=== PATIENT | male | born 1955 | race Caucasian/White ===

== ENCOUNTER → 2017-11-24 | Outpatient (CLI) | payer MEDICARE, OTHER ==
--- NOTE | 2017-11-24 17:42 | CT ---
EXAMINATION TYPE: CT lumbar spine wo con DATE OF EXAM: 11/24/2017 COMPARISON: None HISTORY: Infection following procedure CT DLP: 1301.00 mGycm CONTRAST: None TECHNIQUE: CT of the lumbar spine is performed on a spiral scan at 3 mm thick sections. Reconstructed images are performed in the coronal and sagittal planes. FINDINGS: T7-8: No focal disc herniation or significant disc bulge is evident. No spinal canal stenosis or neur al foraminal stenosis. T8-9: No focal disc herniation or significant disc bulge is evident. No spinal canal stenosis or neur al foraminal stenosis. T9-10: No focal disc herniation or significant disc bulge is evident. No spinal canal stenosis or frank ral foraminal stenosis. T10-11: No focal disc herniation or significant disc bulge is evident. No spinal canal stenosis or ne ural foraminal stenosis. There is a compression deformity of the superior endplate of T11 without sig nificant posterior wall displacement. T11-12: Pedicle screws are present. There is posterior wall displacement of the superior endplate of T12. Severe compression deformity at T12 is present. AP spinal canal stenosis is present measuring 0. 8 cm. Series 3 image 39. This is from posterior superior wall displacement. T12-L1: No focal disc herniation or significant disc bulge is evident. No spinal canal stenosis or ne ural foraminal stenosis present. Some superior endplate compression deformity is present. L1-L2: Laminectomy has been performed. No stenosis present. No focal disc herniation is evident. Comp ression deformity of L2 is present L2-L3: No focal disc herniation is evident. No spinal canal stenosis present. Neural foramen appear p atent. L3-L4: Mild disc bulge has anterior thecal sac contact. No AP spinal canal stenosis or neural foramin al stenosis is present. L4-L5: Mild disc bulging is anterior thecal sac compression. No AP spinal canal stenosis or neural fo raminal stenosis is present. L5-S1: No focal disc herniation or significant disc bulge is evident. No spinal canal stenosis or n eural foraminal stenosis is present. The most severe compression deformity is at T12 with posterior superior wall displacement contributin g to spinal canal stenosis of 0.8 cm. Additional compression deformities are present at T11 to modera te degree, L2 to moderate degree and L1 to mild degree. IMPRESSION: Spinal canal stenosis due to posterior wall displacement of a compression deformity of T12 with a 0.8 cm AP dimension spinal canal at T11-T12. 2. Postsurgical changes throughout the lumbar spine and lower thoracic region. This contributes to so me limitation due to beam hardening artifact.
== END | disposition home or self-care (01) ==
LOC: RADCTMAIN 13:05
PROVIDERS: ATTEND Nurse Practitioner
DX: S32.022D Unstable burst fracture of second lumbar vertebra, subsequent encounter for fracture with routine healing (principal); T81.4XXD Infection following a procedure, subsequent encounter; Z98.1 Arthrodesis status
CPT/HCPCS: 72131

== ENCOUNTER → 2022-02-20 | Outpatient (CLI) | payer MEDICARE, OTHER ==
--- NOTE | 2022-02-20 13:32 | CT ---
EXAMINATION TYPE: CT ankle RT wo con DATE OF EXAM: 02/20/2022 COMPARISON: None. HISTORY: Pain Rt ankle and joints of Rt foot. Displaced fracture of the lateral malleolus. Nondisplac ed fracture of the distal tibia. CT DLP: 261 mGycm Automated exposure control for dose reduction was used. FINDINGS: Acute or subacute slightly displaced spiral type fracture through the distal fibular diaphysis/latera l malleolus with moderate to severe adjacent lateral subcutaneous edema is present. Suggestion of pos sible callus formation on the coronal images. There is irregular linear lucency through the posterior distal tibial metaphysis with more sclerotic component anterior two third portion sagittal image 20 for reference. There is oblique linear lucency through the posterior malleolus extending towards the ankle mortise sagittal image 19. Slight step o ff involving the medial portion of the distal fibular metaphysis noted on coronal images. Findings ar e consistent with likely subacute or healing injury at this level versus acute on chronic injury. Ankle mortise symmetry is preserved. Osseous structures are somewhat demineralized. Hindfoot and midf oot structures are otherwise maintained. Normal sinus tarsi fat is seen. IMPRESSION: As above.
== END | disposition home or self-care (01) ==
LOC: RADCTMAIN 09:47
PROVIDERS: ATTEND Orthopaedic Surgery
DX: S82.301A Unspecified fracture of lower end of right tibia, initial encounter for closed fracture (principal); S82.61XA Displaced fracture of lateral malleolus of right fibula, initial encounter for closed fracture; M25.571 Pain in right ankle and joints of right foot